=== PATIENT | male | born 1980 | race Caucasian/White ===

== ENCOUNTER 2019-12-23 01:43 | Emergency (ER) | payer SELFPAY ==
[2019-12-23 02:04] VITALS: BMI 22.6
--- NOTE | 2019-12-23 02:46 | PDOC ---
History of Present Illness - General Chief Complaint: Alcohol intoxication Stated Complaint: INTOX Time Seen by Provider: 12/23/19 02:46 - History of Present Illness Initial Comments: HPI: 39yo M with no reported PMH presenting with intoxication. [place] States he could not remember his brother' s phone number. Admits to drinking two beers around midnight. Usually drinks about two beers three times a week. Denies history of alcohol withdrawal seizures. No syncope or fall. Denies use of other recreational substances. Does not want to go to detox. No fevers, chills, chest pain, or shortness of breath. ROS: Constitutional: no fever, no chills HEENT: no throat pain, no dysphagia Cardiovascular: no chest pain, no palpitations Respiratory: no cough, no shortness of breath Gastrointestinal: no abdominal pain, no nausea Genitourinary: no dysuria, no hematuria Musculoskeletal: no myalgia, no arthralgia Skin: no rash, no itching Neurologic: no headache, no weakness Psych: no agitation, no anxiety PE: General: Somnolent but arousable Head: No signs of trauma Eyes: EOMI, sclera anicteric ENT: Moist mucus membranes, Fruity odor on breath Neck: Normal ROM, supple Lungs: Lungs clear, Normal breath sounds Cardio: Regular rhythm, S1 and S2 present Abdomen: Soft, nontender. No guarding, no rebound, no masses Extremities: Normal range of motion, Distal pulses present SKIN: Warm, Dry, normal turgor Neurologic: Cranial nerves II through XII grossly intact. Slurred speech ED Course/MDM: DDX including but not limited to intoxication, metabolic derangement, anemia Labs, EKG Presentation consistent with alcohol intoxication Patient likely drank more alcohol than he admits We will obtain basic labs and EKG 12/23/19 02:46 CBC WBC 5.1 K/mm3 (4.0-10.0) 12/23/19 03:25 RBC 4.77 M/mm3 (4.00-5.60) 12/23/19 03:25 Hgb 14.4 GM/dL (11.7-16.9) 12/23/19 03:25 Hct 42.3 % (35.4-49) 12/23/19 03:25 MCV 88.7 fl (80-96) 12/23/19 03:25 MCH 30.3 pg (25.7-33.7) 12/23/19 03:25 MCHC 34.1 g/dl (32.0-35.9) 12/23/19 03:25 RDW 13.7 % (11.9-15.9) 12/23/19 03:25 Plt Count 225 K/MM3 (134-434) 12/23/19 03:25 MPV 8.4 fl (7.5-11.1) 12/23/19 03:25 Absolute Neuts (auto) 2.6 K/mm3 (1.5-8.0) 12/23/19 03:25 Neutrophils % 51.6 % (42.8-82.8) 12/23/19 03:25 Lymphocytes % 40.6 % (8-40) H 12/23/19 03:25 Monocytes % 5.5 % (3.8-10.2) 12/23/19 03:25 Eosinophils % 1.6 % (0-4.5) 12/23/19 03:25 Basophils % 0.7 % (0-2.0) 12/23/19 03:25 Nucleated RBC % 0 % (0-0) 12/23/19 03:25 No leukocytosis CMP Sodium 142 mmol/L (136-145) 12/23/19 03:25 Potassium 3.6 mmol/L (3.5-5.1) 12/23/19 03:25 Chloride 109 mmol/L (98-107) H 12/23/19 03:25 Carbon Dioxide 24 mmol/L (21-32) 12/23/19 03:25 Anion Gap 9 MMOL/L (8-16) 12/23/19 03:25 BUN 15.0 mg/dL (7-18) 12/23/19 03:25 Creatinine 0.9 mg/dL (0.55-1.3) 12/23/19 03:25 Est GFR (CKD-EPI)AfAm 124.26 12/23/19 03:25 Est GFR (CKD-EPI)NonAf 107.21 12/23/19 03:25 Random Glucose 111 mg/dL (74-106) H 12/23/19 03:25 Calcium 8.5 mg/dL (8.5-10.1) 12/23/19 03:25 Total Bilirubin 0.3 mg/dL (0.2-1) 12/23/19 03:25 AST 22 U/L (15-37) 12/23/19 03:25 ALT 29 U/L (13-61) 12/23/19 03:25 Alkaline Phosphatase 107 U/L (45-117) 12/23/19 03:25 Total Protein 7.0 g/dl (6.4-8.2) 12/23/19 03:25 Albumin 3.8 g/dl (3.4-5.0) 12/23/19 03:25 Electrolytes unremarkable Normal Cr No transaminitis EKG: rate 84, QTc 441, NSR Patient signed out to Dr. Diaz and day team Pending clinical sobriety 12/23/19 08:13 Past History - Past Medical History Allergies/Adverse Reactions: Allergies Allergy/AdvReac Type Severity Reaction Status Date / Time No Known Allergies Allergy Verified 12/23/19 02:01 Home Medications: Ambulatory Orders NK [No Known Home Medication] 12/23/19 - Psycho Social/Smoking Cessation Hx Smoking History: Unknown if ever smoked Have you smoked in the past 12 months: No Information on smoking cessation initiated: No Hx Alcohol Use: Yes Drug/Substance Use Hx: No *Physical Exam - Vital Signs Last Vital Signs Temp Pulse Resp BP Pulse Ox 97.9 F 62 20 103/63 98 12/23/19 02:01 12/23/19 02:01 12/23/19 02:01 12/23/19 02:01 12/23/19 02:01 ED Treatment Course - LABORATORY CBC & Chemistry Diagram: 12/23/19 03:25 12/23/19 03:25 Discharge - Discharge Information Problems reviewed: Yes Clinical Impression/Diagnosis: Intoxication Condition: Stable Disposition: HOME - Follow up/Referral - Patient Discharge Instructions Patient Printed Discharge Instructions: DI for Alcohol Abuse Additional Instructions: You came into the emergency department with intoxication. Blood work and EKG did not show acute pathology. Follow-up with your primary care provider within 72 hours to discuss this ED visit and to further evaluate your symptoms. Call and make an appointment tomorrow morning. Your workup is not complete until you do so. Immediate medical attention is required if you have: a seizure or develop tremors or hallucinations and do not have access to alcohol, vomiting, chest pain, shortness of breath, abdominal pain, thoughts of self-harm, or an other new or concerning symptoms. If you think you are having an emergency, call for emergency medical services or present to the emergency department right away. === Llegaste al departamento de emergencias con intoxicacin. El anlisis de prasad y el electrocardiograma no mostraron patologa aguda. Lisa un seguimiento con quinn proveedor de atencin primaria dentro de las 72 horas para analizar esta visita al servicio de urgencias y evaluar mejor marilynn sntomas. Llame y lisa lorena anne maana por la maana. Quinn trabajo no est completo hasta que lo lisa. Se requiere atencin mdica inmediata si tiene: lorena convulsin o desarrolla temblores o alucinaciones y no tiene acceso a alcohol, vmitos, dolor en el pecho, dificultad para respirar, dolor abdominal, pensamientos de autolesin u otros sntomas nuevos o preocupantes. Si amanda que est teniendo lorena emergencia, llame a los servicios mdicos de emergencia o presntese de inmediato en el departamento de emergencias. - Post Discharge Activity
--- NOTE | 2019-12-23 02:54 | PDOC ---
Attending Attestation - Resident Resident Name: Adriana Scott - ED Attending Attestation I have performed the following: I have examined & evaluated the patient, The case was reviewed & discussed with the resident, I agree w/resident's findings & plan - HPI HPI: 12/23/19 03:03 Pt is drunk Bulgarian speaking; he lives in [place], has no family, has no contacts, no job, no doctor. - Physicial Exam PE: 12/23/19 06:52 Pt comes with alcohol intox; he denies having any medical problem. 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 He doesnt mention what drink or how much - Medical Decision Making 12/23/19 06:54 Pt had labs drawn; all normal Pt was hydrated and he will get an alcohol level and he will be signed out to the day team.
[2019-12-23 04:03] LABS: BASO % 0.7 % (0-2.0); EOS % 1.6 % (0-4.5); HEMATOCRIT 42.3 % (35.4-49); HEMOGLOBIN 14.4 GM/dL (11.7-16.9); LYMPH % 40.6 % (8-40); MCH 30.3 pg (25.7-33.7); MCHC 34.1 g/dl (32.0-35.9); MEAN CELL VOLUME 88.7 fl (80-96); MEAN PLT VOLUME 8.4 fl (7.5-11.1); MONO % 5.5 % (3.8-10.2); NEUT % 51.6 % (42.8-82.8); PLATELET COUNT 225 K/MM3 (134-434); RBC 4.77 M/mm3 (4.00-5.60); RDW 13.7 % (11.9-15.9); WHITE BLOOD COUNT 5.1 K/mm3 (4.0-10.0)
[2019-12-23 04:29] LABS: ALBUMIN 3.8 g/dl (3.4-5.0); BILIRUBIN,TOTAL 0.3 mg/dL (0.2-1); CALCIUM 8.5 mg/dL (8.5-10.1); CREATININE 0.9 mg/dL (0.55-1.3); POTASSIUM 3.6 mmol/L (3.5-5.1)
[2019-12-23 07:13] VITALS: BP 112/71; PULSE 67; TEMP 98
--- NOTE | 2019-12-23 08:03 | PDOC ---
*Physical Exam - Vital Signs Last Vital Signs Temp Pulse Resp BP Pulse Ox 98.0 F 67 17 112/71 98 12/23/19 07:12 12/23/19 07:12 12/23/19 07:12 12/23/19 07:12 12/23/19 07:12 ED Treatment Course - LABORATORY CBC & Chemistry Diagram: 12/23/19 03:25 12/23/19 03:25 - ADDITIONAL ORDERS Additional order review: Laboratory Results 12/23/19 03:25 Sodium 142 Potassium 3.6 Chloride 109 H Carbon Dioxide 24 Anion Gap 9 BUN 15.0 Creatinine 0.9 Est GFR (CKD-EPI)AfAm 124.26 Est GFR (CKD-EPI)NonAf 107.21 Random Glucose 111 H Calcium 8.5 Total Bilirubin 0.3 AST 22 ALT 29 Alkaline Phosphatase 107 Total Protein 7.0 Albumin 3.8 12/23/19 03:25 RBC 4.77 MCV 88.7 MCHC 34.1 RDW 13.7 MPV 8.4 Neutrophils % 51.6 Lymphocytes % 40.6 H Monocytes % 5.5 Eosinophils % 1.6 Basophils % 0.7 Medical Decision Making - Medical Decision Making 12/23/19 08:1 pt signed out from Dr. Scott 39y M presenting intoxicated. pending alcohol level, MTF pt is not in the room when I went to go assess. pt walked out, steady gait as observed by Dr. Hanks. Discharge - Discharge Information Problems reviewed: Yes Clinical Impression/Diagnosis: Intoxication Condition: Stable Disposition: HOME - Follow up/Referral - Patient Discharge Instructions Patient Printed Discharge Instructions: DI for Alcohol Abuse Additional Instructions: You came into the emergency department with intoxication. Blood work and EKG did not show acute pathology. Follow-up with your primary care provider within 72 hours to discuss this ED visit and to further evaluate your symptoms. Call and make an appointment tomorrow morning. Your workup is not complete until you do so. Immediate medical attention is required if you have: a seizure or develop tremors or hallucinations and do not have access to alcohol, vomiting, chest pain, shortness of breath, abdominal pain, thoughts of self-harm, or an other new or concerning symptoms. If you think you are having an emergency, call for emergency medical services or present to the emergency department right away. === Llegaste al departamento de emergencias con intoxicacin. El anlisis de prasad y el electrocardiograma no mostraron patologa aguda. Lisa un seguimiento con quinn proveedor de atencin primaria dentro de las 72 horas para analizar esta visita al servicio de urgencias y evaluar mejor marilynn sntomas. Llame y lisa lorena anne maana por la maana. Quinn trabajo no est completo hasta que lo lisa. Se requiere atencin mdica inmediata si tiene: lorena convulsin o desarrolla temblores o alucinaciones y no tiene acceso a alcohol, vmitos, dolor en el pecho, dificultad para respirar, dolor abdominal, pensamientos de autolesin u otros sntomas nuevos o preocupantes. Si amanda que est teniendo lorena emergencia, llame a los servicios mdicos de emergencia o presntese de inmediato en el departamento de emergencias. - Post Discharge Activity
--- NOTE | 2019-12-24 14:16 | EKG ---
Test Reason : Blood Pressure : / mmHG Vent. Rate : 084 BPM Atrial Rate : 084 BPM P-R Int : 146 ms QRS Dur : 090 ms QT Int : 374 ms P-R-T Axes : 062 071 059 degrees QTc Int : 441 ms NORMAL SINUS RHYTHM NORMAL ECG Confirmed by MD ROSA, LONDON ([id number]) on 12/24/2019 2:16:10 PM Referred By: Confirmed By:LONDON LEE MD
== END 2019-12-23 08:22 | disposition home or self-care (01) ==
LOC: JER 01:43
DX: F10.120 Alcohol abuse with intoxication, uncomplicated (principal); Y90.6 Blood alcohol level of 120-199 mg/100 ml
CPT/HCPCS: 36415; 80053; 80307; 85025; 93005; 93010; 99283-25